=== PATIENT | male | born 1995 | race Caucasian/White ===

== ENCOUNTER 2016-07-31 21:19 | Emergency (ER) | payer OTHER ==
[~2016-07-31] VITALS: Ht 188 cm; Wt 81.8 kg
[2016-07-31 21:29] VITALS: BP 124/79; TEMP 98.6
[2016-07-31] MEDS ORDERED: ZANTAC 150MG T150 MG PO (21:32)
[2016-07-31 22:51] VITALS: PULSE 68
== END 2016-07-31 22:52 | disposition home or self-care (01) ==
LOC: COL.ER 21:19
DX: S43.401A Unspecified sprain of right shoulder joint, initial encounter (principal); X50.9XXA Other and unspecified overexertion or strenuous movements or postures, initial encounter

== ENCOUNTER → 2016-08-12 | Outpatient (CLI) | payer OTHER ==
[~2016-08-12] MED LIST: ZANTAC 150MG T150 MG PO
== END ==
LOC: COL.RAD 08:23
DX: S43.491A Other sprain of right shoulder joint, initial encounter (principal); X58.XXXA Exposure to other specified factors, initial encounter
CPT/HCPCS: A9585; Q9967